=== PATIENT | female | born 1990 | race African-American/Black ===

== ENCOUNTER 2020-11-30 09:50 | Emergency (ER) | payer BC, MEDICAID ==
[~2020-11-30] VITALS: Ht 165.1 cm; Wt 75.0 kg
[2020-11-30] MEDS ORDERED: ACETAMINOPHEN 325MG TABLET PO STA (10:27)
[2020-11-30 11:02] LABS: BASOPHILS % 0.3 % (0.0-2.0); EOSINOPHILS % 0.5 % (0.0-5.0); HEMATOCRIT. 34.5 % (36.0-48.0); HEMOGLOBIN. 11.5 g/dL (12.0-16.0); MEAN CORPUSCULAR VOLUME 78.4 fL (81.0-99.0); MEAN PLATELET VOLUME 8.6 fl (7.4-10.4); MONOCYTES % 6.8 % (2.0-8.0); NEUTROPHILS % 76.4 % (40.0-76.0); PLATELET 241 x1000/uL (130-400); RED CELL DISTRIBUTION WIDTH 14.3 % (11.6-14.6)
[2020-11-30 11:05] LABS: CLARITY URINE CLOUDY (CLEAR); COLOR URINE YELLOW (YELLOW); KETONES URINE TRACE (NEGATIVE); LEUKOCYTE ESTERASE URINE NEGATIVE (NEGATIVE); NITRITE URINE NEGATIVE (NEGATIVE); OCCULT BLOOD URINE NEGATIVE (NEGATIVE); PH URINE 5.5 (4.5-8.0); PROTEIN URINE 2+ (NEGATIVE); UROBILINOGEN URINE 0.2 E.U./dL (0.2-1.0)
[2020-11-30 11:06] LABS: CHLORIDE 110 mEq/L (98-107)
[2020-11-30 11:31] LABS: B-HCG QUANTITATIVE 51490 mIU/mL (<3)
[2020-11-30] MEDS ORDERED: TOPUD MT (12:23)
[2020-11-30] MEDS ORDERED: NITR-87 MT (12:25)
[2020-11-30 13:05] VITALS: BP 115/76
== END 2020-11-30 13:08 | disposition home or self-care (01) ==
LOC: ER 09:50
DX: O26.891 Other specified pregnancy related conditions, first trimester (principal); R10.9 Unspecified abdominal pain; Z3A.14 14 weeks gestation of pregnancy
CPT/HCPCS: 36415; 76801; 80053; 81003; 81025; 84702; 85025; 99284